=== PATIENT | female | born 1980 | race Caucasian/White ===

== ENCOUNTER 2017-01-09 22:40 | Outpatient (CLI) | payer OTHER ==
[~2017-01-09] VITALS: Ht 177.8 cm; Wt 95.0 kg
[2017-01-09 22:56] VITALS: BP 110/75
[2017-01-09] MEDS ORDERED: FERR325T3 PO (23:11)
[2017-01-09] MEDS ORDERED: PRENTAB9 PO (23:11)
[2017-01-09] MEDS ORDERED: GLYB25TA PO (23:11)
== END 2017-01-10 02:10 | disposition home or self-care (01) ==
LOC: M LDO 22:40
PROVIDERS: ATTEND Student in an Organized Health Care Education/Training Program
DX: O26.893 Other specified pregnancy related conditions, third trimester (principal); O62.0 Primary inadequate contractions; Z3A.32 32 weeks gestation of pregnancy; O24.415 Gestational diabetes mellitus in pregnancy, controlled by oral hypoglycemic drugs

== ENCOUNTER 2017-01-11 16:19 | Outpatient (CLI) | payer OTHER ==
[~2017-01-11] VITALS: Ht 177.8 cm; Wt 92.0 kg
[~2017-01-11 16:19] MED LIST: FERR325T3 PO; GLYB25TA PO; PRENTAB9 PO
[2017-01-11 16:37] VITALS: BP 115/69
[2017-01-11 18:00] VITALS: BP 122/69
[2017-01-11 19:23] VITALS: BP 139/79
== END 2017-01-11 20:11 | disposition home or self-care (01) ==
LOC: M LDO 16:19
PROVIDERS: ATTEND Midwife
DX: O26.893 Other specified pregnancy related conditions, third trimester (principal); O62.0 Primary inadequate contractions; Z3A.32 32 weeks gestation of pregnancy; O24.415 Gestational diabetes mellitus in pregnancy, controlled by oral hypoglycemic drugs

== ENCOUNTER 2017-01-21 08:56 | Outpatient (CLI) | payer OTHER ==
[~2017-01-21] VITALS: Ht 177.8 cm; Wt 96.0 kg
[2017-01-21 09:22] VITALS: BP 135/84
[2017-01-21 10:49] VITALS: BP 121/78
== END 2017-01-21 11:15 | disposition home or self-care (01) ==
LOC: M LDO 08:56
PROVIDERS: ATTEND Obstetrics & Gynecology
DX: O47.03 False labor before 37 completed weeks of gestation, third trimester (principal); Z3A.33 33 weeks gestation of pregnancy; O21.9 Vomiting of pregnancy, unspecified; O62.0 Primary inadequate contractions; D64.9 Anemia, unspecified; O99.013 Anemia complicating pregnancy, third trimester

== ENCOUNTER 2017-01-24 02:12 | Outpatient (CLI) | payer OTHER ==
[~2017-01-24] VITALS: Ht 177.8 cm; Wt 94.0 kg
--- NOTE | 2017-01-24 06:47 | HPE ---
DATE OF ADMISSION: 01/24/2017 HISTORY This is a 35-year-old 4, para 2, abortio 1, last menstrual period (LMP) 05/30/2016, estimated date of confinement (EDC) 03/06/2017. Has a history of decreased movement over the last seven hours. She has been monitoring her kick chart and she got six movements in two hours, then she had nothing, and then one movement in an hour and she came in for monitoring. She says she is monitored twice a week because of decreased movement and has had an ultrasound as recently as Sunday. PAST HISTORY: 2000: at 13 weeks spontaneous . 2013: 37-week spontaneous vaginal delivery 8 pounds 7 ounces. 2016: 37 weeks spontaneous vaginal delivery 7 pounds 11 ounces. Her risk factors is she is a GDAM1, is on glyburide. Did not bring any testing of her blood sugars. She has anemia and history of Rh negative. She has also osteitis pubis which has not been bothering her recently. LABORATORY DATA: Her labs are all negative, HIV negative, hepatitis negative, RPR negative, rubella immune. Varicella immune. Pap normal. Urine was mixed murtaza. Gonorrhea and chlamydia are negative. One-hour glucose initially was 137. Her 28-week GTT was 165. Her three-hour GTT was passing at 100, one-hour 142, two-hour 103, and three hours 51. Today she is in no distress. Symphysis fundus height is 35, very reactive baby with a category one strip 15 x 15 x 15 seconds. No decelerations. Her urine 1.005, pH six, negative, negative, negative. Her temperature 97.9, blood pressure 128/77, respirations 18, pulse 93. She has a category one strip. No loss of fluid, vertex presenting. The rest the examination is unremarkable. She is normocephalic, atraumatic. Neck full range of motion. Pupils equal and reactive to light. Distal pulses symmetric. No evidence of deep venous thrombosis (DVT), pulmonary embolism (PE) or superficial phlebitis. Chest is clear bilaterally to bases. No wheezes or rhonchi. No costovertebral angle tenderness. Uterus is nontender. Appropriate symphysis fundus height. Category one with four quadrant bowel sounds. No rashes or lesions or pruritus. No arthralgia, myalgia. No complaints of cough, wheezes, shortness of breath or dyspnea on exertion. No chest pain. No bleeding. Neuro complete. No incontinence, urgency or frequency. No nausea, vomiting, diarrhea or constipation. The diabetic issues as mentioned. She has no gynecologic ([employer]) past medical or surgical history is unremarkable. Family history noncontributory. She does not smoke or drink or abuse drugs. She is . Her is in the field, came home to stay with the children so she could come in for monitoring. The rest the examination is unremarkable. The patient was discharged undelivered. She is having monitoring tomorrow with Dr. Turner. Precautions were given and the patient was discharged to followup with [facility].
== END 2017-01-24 04:29 | disposition home or self-care (01) ==
LOC: M LDO 02:12
PROVIDERS: ATTEND Obstetrics & Gynecology
DX: O36.8130 Decreased fetal movements, third trimester, not applicable or unspecified (principal); Z3A.35 35 weeks gestation of pregnancy; O24.415 Gestational diabetes mellitus in pregnancy, controlled by oral hypoglycemic drugs; O99.113 Other diseases of the blood and blood-forming organs and certain disorders involving the immune mechanism complicating pregnancy, third trimester; Z67.11 Type A blood, Rh negative; M85.30 Osteitis condensans, unspecified site; O26.893 Other specified pregnancy related conditions, third trimester

== ENCOUNTER 2017-02-01 12:01 | Outpatient (CLI) | payer OTHER ==
[~2017-02-01] VITALS: Ht 177.8 cm; Wt 97.7 kg
[2017-02-01 12:12] VITALS: BP 127/69
[2017-02-01 13:33] LABS: BASO % 0.2 % (0.0-1.0); EOS # 0.3 K/mm3 (0.0-0.50); EOS % 2.2 % (0.0-3.0); LARGE UNSTAINED CELL # 0.1 K/mm3 (0.0-0.4); LARGE UNSTAINED CELL % 0.5 % (0.0-4.0); LYMPH # 1.6 K/mm3 (1.5-4.5); LYMPH % 10.5 % (24.0-44.0); MEAN CORPUSCULAR HEMOGLOBIN 27.8 pg (27.0-33.0); MEAN CORPUSCULAR HGB CONC 33.5 g/dl (32.0-36.5); MONO # 0.5 K/mm3 (0.0-0.8); MONO % 3.3 % (0.0-5.0); NEUTROPHILS # 11.9 K/mm3 (1.8-7.7); NEUTROPHILS % 83.3 % (36.0-66.0); PLATELET COUNT, AUTOMATED 247 k/mm3 (150-450); WHITE BLOOD COUNT 14.2 K/mm3 (4.0-10.0)
[2017-02-01 13:34] VITALS: BP 112/73
[2017-02-01] MEDS: BETAMETHASONE SOLUSPAN 6MG/ML INJ 5ML (J0702) IM SCH (13:40)
[2017-02-01] MEDS ORDERED: LR 1,000 ML IV SCH (14:00)
[2017-02-01 15:13] VITALS: BP 108/61
[2017-02-01 16:59] VITALS: BP 140/83
[2017-02-01 18:19] VITALS: BP 132/79
[2017-02-02 01:11] VITALS: BP 124/69
[2017-02-02 03:58] VITALS: BP 132/73
[2017-02-02 06:58] VITALS: BP 126/68
[2017-02-02] MEDS: BETAMETHASONE SOLUSPAN 6MG/ML INJ 5ML (J0702) IM SCH (13:43)
--- NOTE | 2017-02-02 15:06 | IPNPDOC ---
Text Note Date of Service The patient was seen on 02/02/17. NOTE L&D Triage Discharge Note 36yo at 35+3 wks EGA now with 2 doses steroids and a Cat 1 NST just now with no ctx's. Still Denies LOF/VB. +FM. PNC c/b GDMA2, anemia VS WNL Gen: NAD, AOx3 Abd: soft, gravid, NT SVE: 2-09/09/-3 (unchanged from last evening) Ext: no edema Cont toco with few ctx's today FSG this AM 120's (no glyburide prior evening), PPL BS also low-120's A/P: 36yo at 35+3wks EGA admitted to obs for PT ctx's. D/C'd home with close f/u has an appt next week. Sessions VS,Richard, I+O VS, Richard, I+O Vital Signs Date Time Temp Pulse Resp B/P (MAP) Pulse Ox O2 Delivery O2 Flow Rate FiO2 02/02/17 06:58 106 126/68 (87) 02/01/17 18:19 99.4 18 I&O- Last 24 Hours up to 6 AM 02/02/17 05:59 Intake Total 1911 ml Output Total 500 ml Balance 1411 ml SESSIONS,ANALI Bear MD Feb 02, 2017 15:06
== END 2017-02-02 14:43 | disposition home or self-care (01) ==
LOC: M LDO 12:01 → M OBS 20:38 → M LDO 02-02 14:43
PROVIDERS: ATTEND Obstetrics & Gynecology
DX: O47.03 False labor before 37 completed weeks of gestation, third trimester (principal); Z3A.35 35 weeks gestation of pregnancy; O62.0 Primary inadequate contractions; D64.9 Anemia, unspecified; O99.013 Anemia complicating pregnancy, third trimester
CPT/HCPCS: 36415; 59025; 81001; 85025; 87086; 96372; 96374; J0702

== ENCOUNTER 2017-02-04 21:25 | Outpatient (CLI) | payer OTHER ==
[~2017-02-04] VITALS: Ht 177.8 cm; Wt 97.0 kg
[2017-02-04 21:39] VITALS: BP 126/74
[2017-02-04 23:33] VITALS: BP 123/74
== END 2017-02-04 23:40 | disposition home or self-care (01) ==
LOC: M LDO 21:25
PROVIDERS: ATTEND Student in an Organized Health Care Education/Training Program
DX: O47.03 False labor before 37 completed weeks of gestation, third trimester (principal); O24.419 Gestational diabetes mellitus in pregnancy, unspecified control; Z3A.35 35 weeks gestation of pregnancy

== ENCOUNTER 2017-02-23 13:49 | Inpatient (IN) | payer OTHER ==
[2017-02-23] VITALS (7 sets, daily range): BP systolic 120–142; BP diastolic 80–91
[~2017-02-23] VITALS: Ht 177.8 cm; Wt 97.0 kg
[2017-02-23 15:02] LABS: MEAN CORPUSCULAR HEMOGLOBIN 27.2 pg (27.0-33.0); MEAN CORPUSCULAR HGB CONC 32.8 g/dl (32.0-36.5); MEAN CORPUSCULAR VOLUME 82.9 fl (80.0-96.0); RED CELL DISTRIBUTION WIDTH 17.1 % (11.5-14.5); WHITE BLOOD COUNT 13.1 K/mm3 (4.0-10.0)
[2017-02-23] MEDS ORDERED: OXYTOCIN 30 UNITS IN 0.9% NaCl 500ML IV BAG (J2590) As Ordered ONE (19:28)
[2017-02-24] VITALS (13 sets, daily range): BP systolic 121–194; BP diastolic 64–87
[2017-02-24] MEDS ORDERED: FENTANYL 2MCG/ML ROPIVACAINE 0.2% IN 0.9% NACL 200ML IVBAG As Ordered ONE (04:12)
[2017-02-24] MEDS ORDERED: ePHEDrine SULFATE 25 MG/5 ML(5MG/ML) SYRINGE IV PRN (05:05)
[2017-02-24] MEDS ORDERED: ONDANSETRON 4MG/2ML VIAL (J2405) IV PRN ×2 (05:05→06:00)
[2017-02-24] MEDS ORDERED: REFRIGERATOR IV KEYS XX PRN (05:05)
[2017-02-24] MEDS ORDERED: diphenhydrAMINE INJ 50MG/ML VIAL (J1200) IV PRN (05:05)
[2017-02-24] MEDS ORDERED: NALOXONE INJ 0.4 MG/1 ML VIAL (J2310) IV PRN (05:05)
[2017-02-24] MEDS ORDERED: LACTATED RINGER'S 1000 ML IV PRN (05:05)
[2017-02-24] MEDS ORDERED: FENTANYL/ROPIVACAINE/NACL BAG 200 ML EPIDURAL SCH (05:05)
[2017-02-24] MEDS ORDERED: EPIDURAL COMMENT XX SCH (05:05)
[2017-02-24] MEDS ORDERED: EPIDURAL/PCA KEYS XX PRN (05:05)
[2017-02-24] MEDS ORDERED: OXYTOCIN DRIP 30 UNITS in APPROPRIATE DILUENT 1 EA IV SCH (05:49)
[2017-02-24] MEDS ORDERED: ACETAMINOPHEN 500 MG TAB PO PRN (06:00)
[2017-02-24] MEDS ORDERED: RHOGAM 300 MCG (1500 IU) INJ (J2790) IM SCH (06:00)
[2017-02-24] MEDS ORDERED: METHYLERGONOVINE MALEATE 0.2 MG/ML VIAL (J2210) IM PRN (06:00)
[2017-02-24] MEDS ORDERED: MEASLES,MUMPS,RUBELLA VACCINE INJ (MMR-II) (90707) SC SCH (06:00)
[2017-02-24] MEDS ORDERED: PROMETHAZINE 25 MG TAB PO PRN (06:00)
[2017-02-24] MEDS ORDERED: DIBUCAINE 1% OINTMENT 30GM TOP PRN (06:00)
[2017-02-24] MEDS: PRENATAL VITAMINS CHEWABLE TABLET PO SCH (07:55)
[2017-02-24] MEDS: IBUPROFEN 800 MG TAB PO PRN (07:56)
[2017-02-24] MEDS: DOCUSATE SODIUM 100 MG CAP PO SCH ×2 (08:31→21:00)
[2017-02-25 06:02] VITALS: BP 120/70
[2017-02-25] MEDS: PRENATAL VITAMINS CHEWABLE TABLET PO SCH (07:58)
[2017-02-25] MEDS: IBUPROFEN 800 MG TAB PO PRN (07:59)
[2017-02-25] MEDS: DOCUSATE SODIUM 100 MG CAP PO SCH ×2 (09:00→21:00)
[2017-02-25 18:00] VITALS: BP 129/70
[2017-02-26 02:00] VITALS: BP 110/78
[2017-02-26] MEDS ORDERED: DIBU10OI TOP (07:51)
[2017-02-26] MEDS ORDERED: COLA100C5 PO (07:51)
[2017-02-26] MEDS ORDERED: ACET50TA PO (07:51)
[2017-02-26] MEDS ORDERED: ADVI200C5 PO (07:51)
[2017-02-26] MEDS: PRENATAL VITAMINS CHEWABLE TABLET PO SCH (08:10)
[2017-02-26] MEDS: DOCUSATE SODIUM 100 MG CAP PO SCH (08:38)
== END 2017-02-26 14:00 | disposition home or self-care (01) | DRG 767 ==
LOC: M LDO 13:49 → M LDI 14:16 → M OBS 02-24 08:55
PROVIDERS: ADMIT Obstetrics & Gynecology; ATTEND Obstetrics & Gynecology
PROC: 10D17ZZ Extraction of Products of Conception, Retained, Via Natural or Artificial Opening (ICD-10-PCS; principal; 2017-02-24)
PROC: 10E0XZZ Delivery of Products of Conception, External Approach (ICD-10-PCS; 2017-02-24)
DX: O73.0 Retained placenta without hemorrhage (principal); O99.52 Diseases of the respiratory system complicating childbirth; Z37.0 Single live birth; Z3A.38 38 weeks gestation of pregnancy; O09.523 Supervision of elderly multigravida, third trimester; J45.909 Unspecified asthma, uncomplicated; D64.9 Anemia, unspecified; O99.02 Anemia complicating childbirth